=== PATIENT | male | born 1930 | race Caucasian/White ===

== ENCOUNTER → 2017-11-06 | Outpatient (REF) ==
[~2017-11-06] MED LIST: AGGRENOX ER 251 CER PO; CLINORIL 1150 MG/TAB PO; COMBIVENT INH14.7 GM IH; DEMADEX 20MG20 M1 PO; DILANTIN 100MG100 MG PO; FLOMAX 0.40.4 MG/CAP PO; LIPITOR 10MG10 MG PO; MIRALAX PA17 GM/Dose PO; NYSTATIN POWDER15 GM TOP; Patient's Own Medication NS; TENORMIN 2525 MG/TAB PO; VITAMIN C500 MG PO; ZESTRIL 5MG5 MG PO; ZINC SO4 PO
== END ==
LOC: ZLAB.WCH 08:33
DX: Z01.89 Encounter for other specified special examinations (principal)

== ENCOUNTER → 2018-10-07 | Outpatient (REF) | LOC: ZLAB.WCH 09:34 | DX: Z01.89 Encounter for other specified special examinations (principal) ==